=== PATIENT | male | born 1955 | race Caucasian/White ===

== ENCOUNTER 2016-09-12 11:30 | Day surgery (SDC) | payer OTHER ==
[~2016-09-12] VITALS: Ht 172.7 cm; Wt 87.0 kg
[~2016-09-12 11:30] MED LIST: 0.9% Sodium Chloride 1,000 ML IV SCH; Sodium Chloride LOK Flush 10 mL Syringe IV PRN; fentaNYL-PF 50 mCg/mL 2 mL Inj IVPUSH PRN
[2016-09-12] MEDS ORDERED: LUTE1CAP PO (11:58)
[2016-09-12] MEDS ORDERED: AMLO10TA3 PO (11:58)
[2016-09-12] MEDS ORDERED: HYDR25TA4 PO (11:58)
[2016-09-12 11:59] VITALS: BP 132/88; PULSE 81; RESP 16; O2SAT 95
[2016-09-12 13:23] VITALS: BP 144/90; PULSE 70; RESP 16; O2SAT 94
[2016-09-12 13:35] VITALS: BP 124/83; PULSE 64; RESP 14; O2SAT 96
[2016-09-12 13:45] VITALS: BP 116/80; PULSE 72; RESP 16; O2SAT 96
--- NOTE | 2016-09-13 00:15 | ENDO ---
[address] [address] ENDOSCOPY PROCEDURE PATIENT: DEDE HELTON : 1955 MR#: [id number] ADMIT: 09/12/2016 JOB ID: [id number] DATE OF PROCEDURE: 09/12/2016 PRIMARY PROVIDER: Jak Mejia MD PROCEDURE: Colonoscopy with cold forceps polypectomies. INDICATIONS: A 61-year-old male with a personal history of colon polyps, returning for surveillance. EQUIPMENT: Lucidity ([employer])-H180AL. SEDATION: 1. Versed 5 mg. 2. Fentanyl 125 mcg. COMPLICATIONS: None identified. BOWEL PREPARATION: Fair, adequate exam. PROCEDURE INFORMATION: After the risks and benefits were explained, written and verbal informed consent was obtained. The patient was brought into the endoscopy suite and placed into the left lateral decubitus position. Sedation was achieved as above. A digital rectal examination accomplished. No significant pathology appreciated. The scope was introduced into the rectum and advanced to the cecum as identified by the appendiceal orifice and ileocecal valve. The scope was slowly withdrawn to carefully examine the mucosa for any defects or lesions. Multiple direct views were made through the dentate line for exclusion of pathology. The colon was decompressed. The scope was removed from the patient who tolerated the procedure well. FINDINGS: In the ascending colon, there was a very diminutive, perhaps 3 mm, polyp removed with cold forceps. In the rectosigmoid region, there were a couple of classic hyperplastic appearing polyps, very diminutive, removed with cold forceps. No other significant pathology was appreciated throughout. ENDOSCOPIC DIAGNOSES: 1. Colon polyps. 2. Otherwise visually unremarkable colon. RECOMMENDATIONS: 1. Await histopathology. 2. Repeat colonoscopy in five years.
--- NOTE | 2016-09-13 14:36 | PATH ---
SURGICAL PATHOLOGY Attending Physician:Dexter Monterroso CASE STATUS: Signed Out PATIENT NAME: DEDE HELTON PID: [id number] : 1955 DATE COLLECTED:09/12/2016 20:19 SPECIMEN: 1: Colon, Biopsy 2: Colon, Biopsy CLINICAL HISTORY: 1). ASCENDING POLYP 2). RECTOSIGMOID POLYP FINAL DIAGNOSIS: 1.ASCENDING POLYP: TUBULAR ADENOMA. 2.RECTOSIGMOID POLYP: HYPERPLASTIC POLYP. ICD10 CODE D12.2 K63.5 GROSS DESCRIPTION: Received are two formalin-filled containers, both labeled with the patient' s name: 1. Received in formalin, labeled with the patient' s name and "ascending polyp", is one fragment of jaime, soft tissue measuring 0.1 x 0.1 x 0.1 cm. The fragment is totally submitted in cassette 1A. 2. Received in formalin, labeled with the patient' s name and "rectosigmoid polyp", are two fragments of jaime, soft tissue ranging in size from 0.1 x 0.1 x 0.1 cm to 0.2 x 0.1 x 0.1 cm. All fragments are totally submitted in cassette 2A. ([id number]) MICRO DESCRIPTION: See diagnosis. ICD-9 CODES: CPT CODES: 1: 44676 2: 15482 Electronically Signed Out Melissa Richardson MD [facility] [address], [place] [address] Technical component performed at [facility], [facility] [address], [place], [address]
== END 2016-09-12 23:59 | disposition home or self-care (01) ==
LOC: END 11:30
PROVIDERS: ATTEND Internal Medicine Gastroenterology
DX: Z12.11 Encounter for screening for malignant neoplasm of colon (principal); Z86.010 Personal history of colon polyps; D12.2 Benign neoplasm of ascending colon; K63.5 Polyp of colon; I10 Essential (primary) hypertension
CPT/HCPCS: 45380; 99153; G0500; J2250; J3010; J7030